=== PATIENT | female | born 2005 | race Caucasian/White ===

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

== ENCOUNTER 2024-06-10 11:40 | Emergency (ER) | payer OTHER ==
--- OUTSIDE RECORDS SUMMARY | 2024-06-10 11:43 | XMS REPORT | Continuity of Care Document ---
Author Name Unknown Address [address] [facility] [address] [place] [address] [facility] Address [address] [facility] [address] [place] [address] Care Team Providers Care Tank Bottom Assembler Name Role Phone Marla Gilbert Edward Primary Care Physician [phone] THIEN JACK Attending Clinician Unavailable Thien Jack DO Attending Clinician [phone] Doctor Unassigned, Yantis Attending Clinician U ANSLEY Shaw Attending Clinician Amada Redding Attending Clinician [phone] Stanford Montiel DO Attending Clinician [phone] Ansley Ruiz MD Attending Clinician + [phone] GÓMEZ CHU Attending Clinician Unavaila Gómez Novak Attending Clinician [phone] GEENA DRAPER Attending Clinician Unavailable Geena Draper MD Attending Clinician [phone] ANSLEY RUIZ Admitting Clinician Ansley Murguia MD Admitting Clinician + [phone] Payers Payer Name Policy Type Policy Number Effective Date Expirati on Date Source [facility] [id number] 2021 00:00:00 [employer] [place] [id number] 2018 00:00:00 2020 00:00:00 Problems Condition Name Condition Details Condition Category Status Onset Date Resolution Date Last Treatment Date Treating Clinician Comments Source Drug overdose, undetermin ed intent, initial encounter Drug overdose, undetermin ed intent, initial encounter Disease Active 08-07 00:00: 00 [facility] Irregular menstrual cycle Irregular menstrual cycle Disease Active 1 00:00: 00 [facility] Allergies, Adverse Reactions, Alerts Allergy Name Allergy Type Status Severity Reaction(s) Onset Date Inactive Date Treating Clinician Comments Source NO KNOWN ALLERGIE S Drug Class Active [facility] Social History Social Habit Start Date Stop Date Quantity Comments Source History of tobacco use Occasional tobacco smoker [facility] History SDOH Alcohol Std Drinks [facility] History SDOH Alcohol Binge [facility] History SDOH Alcohol Comment [place] [facility] Exposure to SARS-CoV-2 (event) 2021-11-26 00:00:00 2021-12-06 12:00:00 Not sure [facility] Alcohol intake 2021-08-07 00:00:00 2021-08-07 00:00:00 Ex-drinker (finding) [facility] Tobacco use and exposure 2020-03-06 00:00:00 2020-03-06 00:00:00 Smokeless tobacco non-user [facility] History SDOH Alcohol Frequency 2020-03-06 00:00:00 2020-03-06 00:00:00 1 [facility] Sex Assigned At 2005 00:00:00 2005 00:00:00 [facility] Smoking Status Start Date Stop Date Source Occasional tobacco smoker 2020-03-06 00:00:00 [facility] Medications Ordered Medication Name Filled Medication Name Start Date Stop Date Current Medication? Ordering Clinician Indication Dosage Frequency Signature (SIG) Comments Components Source amoxicillin -clavulanat e 875-125 mg per tablet 2021-02 00:00: 00 Yes [id number] 1{tbl} Take 1 tablet by mouth every 12 (twelve) hours. [facility] naproxen sodium 550 mg tablet 2021-02 00:00: 00 Yes [id number] 550mg Take 1 tablet by mouth in the morning and 1 tablet in the evening. Take with meals. [facility] methocarbam oL 500 mg tablet 2021-02 00:00: 00 12-12 04:59 :00 No [id number] 500mg Take 1 tablet by mouth in the morning and 1 tablet at noon and 1 tablet in the evening. Do all this for 5 days. [facility] lorazepam 2 mg/mL (ATIVAN) injection 2 mg 08-08 16:15: 00 08-08 16:20 :00 No 2mg 2 mg, Slow IV Push, ONCE, 1 dose, On Wed08/08/21 at 1130, Routine [facility] acetaminoph en (TYLENOL) tablet 650 mg 08-08 13:34: 48 Yes 650mg 650 mg, Oral, Q6HPRN, Starting on Wed08/08/21 at 0834, Until Discontinu ed, Routine, Pain (scale 1-3) [facility] lidocaine 4% (L-M-X 4) 4 % cream 08-07 21:42: 23 Yes Topical, PRN - SEE INSTRUCTIO NS, Starting on Wed08/07/21 at 1642, Until Discontinu ed, Routine, For use with IV insertion and blood draw procedures . [facility] potassium chloride 20 mEq/100 mL (KCL) 20 mEq/100 mL RTU IVPB 20 mEq 08-07 11:00: 00 08-07 12:54 :00 No 20meq 20 mEq, IV Piggyback, ONCE, 1 dose, On Wed08/07/21 at 0600, 100 mL [facility] pantoprazol e (PROTONIX) injection 40 mg 08-07 07:00: 00 08-07 21:41 :39 No 40mg 40 mg, Slow IV Push, Q24H, First dose on Wed08/07/21 at 0200, Until Discontinu ed [facility] ziprasidone (GEODON) injection 10 mg 08-07 02:15: 00 08-07 01:58 :00 No 10mg 10 mg, Intramuscu lar, ONCE, 1 dose, On Wed08/06/21 at 2115, ARLENE [facility] NaCl 0.9% (NS) bolus infusion 1,000 mL 08-07 02:15: 00 08-07 04:19 :00 No 1000mL at 999 mL/hr, 1,000 mL, IV Infusion, ONCE, 1 dose, On Wed08/06/21 at 2115, STAT [facility] ziprasidone (GEODON) injection 10 mg 08-07 02:00: 00 08-07 01:02 :00 No 10mg 10 mg, Intramuscu lar, ONCE, 1 dose, On Wed08/06/21 at 2100, ARLENE [facility] No known medications 08-06 19:55: 39 No [facility] norethindro ne-ethinyl estradiol (LOESTRIN 03/13, ,) 1-20 mg-mcg per tablet 113 00:00: 00 08-08 00:00 :00 No [id number] 1{tbl} Take 1 tablet by mouth daily. [facility] ARIPiprazol e 30 mg tablet 2019-02 216 00:00: 00 08-08 00:00 :00 No 30mg Take 30 mg by mouth daily. [facility] traZODone 50 mg tablet 2019-02 0-28 00:00: 00 08-08 00:00 :00 No 50mg Take 50 mg by mouth at bedtime. [facility] Vital Signs Vital Name Observation Time Observation Value Comments S merari Systolic blood pressure 2021-12-06 17:50:00 117 mm[Hg] [facility] Diastolic blood pressure 2021-12-06 17:50:00 68 mm[Hg] [facility] Heart rate 2021-12-06 17:50:00 92 /min [facility] Respiratory rate 2021-12-06 17:50:00 16 /min [facility] Oxygen saturation in Arterial blood by Pulse oximetry 2021-12-06 17:50:00 100 /min [facility] Body temperature 2021-12-06 17:01:00 36.67 Chasity [facility] Body height 2021-12-06 17:01:00 152.4 cm [facility] Body weight 2021-12-06 17:01:00 47.174 kg [facility] BMI 2021-12-06 17:01:00 20.31 kg/m2 [facility] Body mass index (BMI) [Percentile] Per age and sex 2021-12-06 17:01:00 38.34 % [facility] Systolic blood pressure 2021-08-08 13:00:00 107 mm[Hg] [facility] Diastolic blood pressure 2021-08-08 13:00:00 65 mm[Hg] [facility] Heart rate 2021-08-08 13:00:00 64 /min [facility] Body temperature 2021-08-08 13:00:00 36.89 Chasity [facility] Respiratory rate 2021-08-08 13:00:00 15 /min [facility] Oxygen saturation in Arterial blood by Pulse oximetry 2021-08-08 13:00:00 98 /min [facility] Body height 2021-08-07 13:10:00 154.9 cm [facility] Body weight 2021-08-07 13:10:00 40 kg [facility] BMI 2021-08-07 13:10:00 16.66 kg/m2 [facility] Body mass index (BMI) [Percentile] Per age and sex 2021-08-07 13:10:00 1.83 % [facility] Systolic blood pressure 2021-04-09 17:40:00 110 mm[Hg] [facility] Diastolic blood pressure 2021-04-09 17:40:00 62 mm[Hg] [facility] Heart rate 2021-04-09 17:40:00 136 /min [facility] Body temperature 2021-04-09 17:40:00 36.33 Chasity [facility] Respiratory rate 2021-04-09 17:40:00 18 /min [facility] Body weight 2021-04-09 17:40:00 48.535 kg [facility] Oxygen saturation in Arterial blood by Pulse oximetry 2021-04-09 17:40:00 99 /min [place] [facility] Procedures Procedure Date / Time Performed Performing Clinician Source CONSENT/REFUSAL FOR DIAGNOSIS AND TREATMENT 2021-12-06 16:54:00 Doctor Unassigned, Yantis [facility] EXTERNAL PROVIDER RECORDS 2021-08-15 05:01:00 Do ctor Unassigned, Yantis [facility] HB ECG ROUTINE & RHYTHM STRIP 2021-08-07 07:30:44 Anali Sinclair [facility] PROTHROMBIN TIME / INR 2021-08-07 07:11:00 Melquiades Sinclair [facility] ACTIVATED PARTIAL THRMPLAS MICHELLE 2021-08-07 07:11:00 Anali Sinclair [facility] MRSA / MSSA SCREEN BY PCR, ROLAN 2021-08-07 07:11:00 Anali Sinclair [facility] PHOSPHORUS 2021-08-07 07:11:00 Anali Sinclair [facility] MAGNESIUM 2021-08-07 07:11:00 [facility] BASIC METABOLIC PANEL (NA, K, CL, CO2, GLUCOSE, BUN, CREATININE, CA) 2021-08-07 07:11:00 Anali Sinclair [facility] HB ECG ROUTINE & RHYTHM STRIP 2021-08-07 03:52:36 Anali Sinclair [facility] XR CHEST 1 VW 2021-08-07 02:40:15 Amada Reeder [facility] ASSIGNMENT OF BENEFITS 2021-08-07 02:18:21 Docto r Unassigned, Yantis [facility] POCT TEST 2021-08-07 01:56:00 Amada Reeder [facility] COVID-19 (ID NOW RAPID TESTING) 2021-08-07 01:56:00 Amada Reeder [facility] LAB ONLY COVID INTERPRETATION 2021-08-07 01:56:00 Amada Reeder [facility] URINE DRUG (IMMUNOASSAY) - COMPREHENSIVE DRUG SCREEN 2021-08-07 01:54:00 Amada Reeder [facility] URINALYSIS 2021-08-07 01:54:00 Amada Reeder [facility] HB ECG ROUTINE & RHYTHM STRIP 2021-08-07 01:31:52 Amada Reeder [facility] ETHANOL 2021-08-07 01:07:00 Amada Reeder [facility] CBC WITH DIFF 2021-08-07 01:07:00 Amada [facility]eder [facility] K[facility] 2021-08-07 01:07:00 [facility] LIP[facility] 2021-08-07 01:07:00 Amada Reeder [facility] MAGNESIUM 2021-08-07 01:07:00 Amada Reeder [facility] TROPONIN I 2021-08-07 01:07:00 Amada Reeder [facility] COMP. METABOLIC PANEL (37826) 2021-08-07 01:07:00 Amada Reeder [facility] SALICYLATE 2021-08-07 01:07:00 Amada Reeder [facility] NOTICE OF PRIVACY PRACTICES 2021-04-09 17:39:01 Doctor Unassigned, Yantis [facility] CONSENT/REFUSAL FOR DIAGNOSIS AND TREATMENT 2021-04-09 17:36:13 Doctor Unassigned, Yantis [facility] Encounters Start Date/Time End Date/Time Encounter Type Admission Type Attending [facility] Care Facility Care Department Encounter ID Source 2023-09-13 10:14:06 2023-09-13 10:14:06 Outpatient [facility] [id number] Leroy F Benito 2023-09-06 16:20:46 2023-09-06 16:20:46 Outpatient [facility] [id number] Leroy F Benito 2023-08-31 15:46:54 2023-08-31 15:46:54 Outpatient [facility] [id number] Leroy F Benito 2021-12-06 12:03:00 2021-12-06 12:58:00 Emergency X THIEN JACK [facility] ERT [id number] [facility] 2021-12-06 12:03:00 2021-12-06 12:58:[address] [facility] [id number] 350.1.13.10 4.2.7.2.686 [id number] [facility] 2021-08-15 00:00:00 2021-08-15 00:00:00 Orders Only Doctor Unassigned, Yantis [facility] 1.2840.114 350.1.13.10 4.2.7.2.686 [id number] [facility] 2021-08-06 19:50:00 2021-08-08 17:51:00 Outpatient X CARITO ROE [facility] PED [id number] [facility] 2021-08-06 19:50:00 2021-08-08 17:51:00 Hospital Encounter Amada Reeder [facility] 1..114 350.1.13.10 4.2.7.2.686 [id number] [facility] 2021-04-09 11:44:00 2021-04-09 12:45:00 Emergency X GÓMEZ CHU [facility] ERT [id number] [facility] 2021-04-09 11:44:00 2021-04-09 12:45:[address]ómez Chu [facility] 1.2840.114 350.1.13.10 4.2.7.2.686 [id number] [facility] 2021-04-09 00:00:00 2021-04-09 00:00:00 Orders Only Doctor Unassigned, Yantis [facility] 1.2840.114 350.1.13.10 4.2.7.2.686 [id number] [facility] 2020-09-03 14:00:00 2020-09-03 14:00:00 Outpatient GEENA KITCHEN [facility] [id number] [facility] 2020-03-06 14:40:32 2020-03-06 15:31:16 Office Visit Geena Draper [facility] [id number] 350.1.13.10 4.2.7.2.686 [id number] 2020-03-06 14:30:00 2020-03-06 15:31:16 Outpatient Satya GEENA DRAPER [facility] [id number] [facility] 2019-03-06 00:00:00 2019-03-06 00:00:00 Orders Only Doctor Unassigned, Yantis [facility] [id number] 350.1.13.10 4.2.7.2.686 [id number] Results Test Description Test Time Test Comments Results Result Co mments Source [facility] [id number] 08:58:46* Test Item Value Reference Range Interpretation Comme [facility] MAGNESIUM (test code = 8516496705) 2.1 mg/dL 1.7-2.4 Lab Interpretation (test cod e = 16108-5) Normal [facility] [id number] 08:58:46* Test Item Value Reference Range Interpretation Comme nts PHOSPHORUS (test code = 5788180763) 3.6 mg/dL 2.5-5.0 Lab Interpretation (test cod e = 66560-4) Normal [facility]thrombin Time / [id number] 07:44:37* Test Item Value Reference Range Interpretation Comme nts PROTIME PATIENT (test code = 5964-2) See_Comment [Automated messa ge] The system which generated this result transmitted reference range: 10.1 - 12.6 Seconds. The reference range was not used to interpret this result as normal/abnormal. INR (test code = 6301-6) Normal INR <1.1; Warfarin Therapeutic range 2.0 to 3.0 or 2.5 to 3.5, depending upon the indications. Lab Interpretation (test code = 53845-0) Normal [facility]aPTT2022-06-16 07:44:37* Test Item Value Reference Range Interpretation Comme nts APTT Patient (test code = 3173-2) See_Comment [Automated messa ge] The system which generated this result transmitted reference range: 26 - 36 Seconds. The reference range was not used to interpret this result as normal/abnormal. Lab Interpretation (test code = 56749-8) Normal [facility]2022-06-16 01:59:04* Test Item Value Reference Range Interpretation Comme nts MAGNESIUM (test code = 7230780122) 2.2 mg/dL 1.7-2.4 Lab Interpretation (test cod e = 66870-6) Normal [facility]landPOCT [id number] 01:56:00* Test Item Value Reference Range Interpretation Comme nts POCT PREG (test code = 1605) Negative On board controls acceptable with C Line (test code = 3574) Present POCT PREG LOT # (test code = 3575) HCG [id number] POCT PREG TEST DATE ( test code = 3576) 11/21/2022 Lab Interpretation (test cod e = 06171-1) [facility]* Test Item Value Reference Range Interpretation Comme nts SALICYLATE (test code = 4103502092) <10 mg/L YOVANNY (test code = YOVANNY) Therapeutic Range: ? Analgesic and Antipyretic Use ? 20-100 mg/L ? ? Anti-Inflammatory Use ? 100-250 mg/L Toxic Range: ? Greater than 300 mg/L [facility]ET[facility]INOPHEN2022-06-16 01:49:50* Test Item Value Reference Range Interpretation Comme nts ACETAMINOP (test code = 0494498643) <10.0 10.0-30.0 L YOVANNY (test code = YOVANNY) Toxic: Greater brooke n 200 ug/mL @ 4 hour post ingestion or greater than 50 ug/mL @ 12 hour post ingestion Lab Interpretation (test code = 24483-1) Abnormal [facility]ANOL2022-06-16 01:42:10* Test Item Value Reference Range Interpretation Comme nts ALCOHOL (test code = 9105829764) <10 mg/dL YOVANNY (test code = YOVANNY) <10 Ayequsuo14-172 Toxic>100 Depression of TEST GRADER>400 Fatalities Reported [facility]land[facility]OPONIN [id number] 01:38:18* Test Item Value Reference Range Interpretation Comments TROPONIN I (test code = 0895490946) 0.001 ng/mL See_Comment [Automated message] The system which generated this result transmitted reference range: <=0.034. The reference range was not used to interpret this result as normal/abnormal. YOVANNY (test code = YOVANNY) Reference (Normal) Range (defined by the 99th percentile reference limit): <= 0.034 ng/mL Note: Cardiac troponin begins to rise 3-4 hours after the onset of ischemia. Repeat in 4-6 hours if the sample was drawn within 3-4 hours of the onset of the symptom and found normal. Diagnosis of myocardial injury is made with acute changes in cTn concentrations with at least one serial sample above the 99th percentile upper reference limit (URL), taken together with the patient's clinical presentation. Biotin has been reported to cause a negative bias, interpret results relative to patient's use of biotin. Lab Interpretation (test code = 51150-1) Normal [facility]IPASE2022-06-16 01:34:17* Test Item Value Reference Range Interpretation Comme nts LIPASE (test code = 3804802578) 98 U/L 0-220 Lab Interpretation (test cod e = 98838-6) Normal [facility]landCOMP. METABOLIC PANEL (12153)2021-08-07 01:26:59* Test Item Value Reference Range Interpretation Comme nts NA (test code = 4121236014) 141 mmol/L 135-145 K (test code = 4192435614) 3.9 mmol/L 3.5-5.0 CL (test code = 7910757226) 107 mmol/L 98-108 CO2 TOTAL (test code = 7478127992) 25 mmol/L 23-31 AGAP (test code = 6266845038) 2-16 BUN (test code = 4324392187) 14 mg/dL 7-23 GLUCOSE (test code = 9026268602) 102 mg/dL 70-110 CREATININE (test code = 3351447847) 0.77 mg/dL 0.50-1.04 TOTAL BILI (test code = 6951056043) 0.3 mg/dL 0.1-1.1 CALCIUM (test code = 5338889227) 9.6 mg/dL 8.6-10.6 T PROTEIN (test code = 5341462439) 6.8 g/dL 6.3-8.2 ALBUMIN (test code = 9077989717) 4.4 g/dL 3.5-5.0 ALK PHOS (test code = 1510948921) 74 U/L 34-122 ALTv (test code = 1742-6) 14 U/L 5-35 AST(SGOT) (test code = 7402106997) 22 U/L 13-40 YOVANNY (test code = YOVANNY) Association of Glomerular Filtration Rate (GFR) and Staging of Kidney Disease* + --+ --+ ------+| GFR (mL/min/1.73 m2) ?| With Kidney Damage ?| ?Without Kidney Damage+ --------+ --------+ +| ?>90 ?| ?Stage one ?| ? Normal ?+ ---+ ---+ -------+| ?60-89 ?| ?Stage two ?| ? Decreased GFR ? + --+ --+ ------+| ?30-59 ?| ?Stage three ?| ? Stage three ? + --+ --+ ------+| ?15-29 ?| ?Stage four ? | ? Stage four ?+ ---+ ---+ -------+| ?<15 (or dialysis) ? ?| ?Stage five ? | ? Stage five ?+ ---+ ---+ -------+ *Each stage assumes the associated GFR level has been in effect for at least three months. ?Stages 1 to 5, with or without kidney disease, indicate chronic kidney disease. Notes: Determination of stages one and two (with eGFR >59mL/min/1.73 m2) requires estimation of kidney damage for at least three months as defined by structural or functional abnormalities of the kidney, manifested by either:Pathological abnormalities or Markers of kidney damage (including abnormalities in the composition of the blood or urine or abnormalities in imaging tests). Lab Interpretation (test code = 75572-3) Normal [facility]landCREATINE [id number] 01:26:39* Test Item Value Reference Range Interpretation Comme nts CK (test code = 9114043758) 69 U/L 33-194 Lab Interpretation (test cod e = 89702-8) Normal [facility]land[facility] WITH [id number] 01:15:38* Test Item Value Reference Range Interpretation Comme nts WBC (test code = 6690-2) See_Comment [Automated uSharea ge] The system which generated this result transmitted reference range: 4.50 - 13.50 10*3/?L. The reference range was not used to interpret this result as normal/abnormal. RBC (test code = 789-8) See_Comment L [Automated messa ge] The system which generated this result transmitted reference range: 4.10 - 5.10 10*6/?L. The reference range was not used to interpret this result as normal/abnormal. HGB (test code = 718-7) 12.3 g/dL 12.0-16.0 HCT (test code = 4544-3) 36.9 % 36.0-45.0 MCV (test code = 787-2) 94.9 fL 78.0-95.0 MCH (test code = 785-6) 31.6 pg 26.0-32.0 MCHC (test code = 786-4) 33.3 g/dL 32.0-36.0 RDW-SD (test code = 02747-1) 42.5 fL 38.5-49.0 RDW-CV (test code = 788-0) 12.2 % 11.5-14.0 PLT (test code = 777-3) See_Comment [Automated messa ge] The system which generated this result transmitted reference range: 135 - 361 10*3/?L. The reference range was not used to interpret this result as normal/abnormal. MPV (test code = 10960-7) 9.4 fL 9.4-13.3 NRBC/100 WBC (test code = 1018059190) See_Comment [Automated me ssage] The system which generated this result transmitted reference range: 0.0 - 10.0 /100 WBCs. The reference range was not used to interpret this result as normal/abnormal. NRBC x10^3 (test code = 1948102840) <0.01 See_Comment [Automated messa ge] The system which generated this result transmitted reference range: 10*3/?L. The reference range was not used to interpret this result as normal/abnormal. GRAN MAT (NEUT) % (test code = 770-8) 59.4 % IMM GRAN % (test code = 6899078518) 0.30 % LYMPH % (test code = 736-9) 30.6 % MONO % (test code = 5905-5) 7.7 % EOS % (test code = 713-8) 1.5 % BASO % (test code = 706-2) 0.5 % GRAN MAT x10^3(ANC) (test code = 1030453395) 3.92 10*3/uL 1.50-10.30 IMM GRAN x10^3 (test code = 4250832337) <0.03 0.00-0.06 LYMPH x10^3 (test code = 731-0) 2.02 10*3/uL 0.70-7.40 MONO x10^3 (test code = 742-7) 0.51 10*3/uL 0.00-0.50 H EOS x10^3 (test code = 711-2) 0.10 10*3/uL 0.00-0.40 BASO x10^3 (test code = 704-7) 0.03 10*3/uL 0.00-0.10 Lab Interpretation (test code = 06682-2) Abnormal [facility]"
--- NOTE | 2024-06-10 11:53 | EDPHYS ---
Physician Documentation [facility] Name: Patrizia Pantoja Age: 19 yrs Sex: Female : 2005 Arrival Date: 06/10/2024 Time: 11:40 Bed 6 Private MD: ED Physician Christiano Barrientos HPI: 06/10 11:54 This 19 yrs old Female presents to ER via Ambulatory with complaints of SOCIAL ISSUE. sb4 11:54 patient is here requesting paperwork to "confirm her identity" she has no medical sb4 complaint. was sent by social security office. denies headache. 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 - Infectious Disease History:: Denies. - Social history:: Smoking status: Patient denies any tobacco usage or history of. ROS: 11:54 Constitutional: Negative for fever, chills, and weight loss, sb4 Exam: 11:54 Constitutional: This is a well developed, well nourished patient who is awake, alert, sb4 and in no acute distress. Head/Face: Normocephalic, atraumatic. Eyes: Extra-ocular motions intact. Periorbital areas with no swelling, redness, or edema. ENT: Mucous membranes moist. Respiratory: No increased work of breathing, no retractions or nasal flaring. Skin: Warm, dry with normal turgor. Normal color with no rashes, no lesions, and no evidence of cellulitis. Vital Signs: 11:53 BP 121 / 61; Pulse 61; Resp 16; Temp 98.6; Pulse Ox 96% ; Pain 0/10; ll1 11:53 Pain Scale: Adult ll1 MDM: 11:49 Medical Screening Exam initiated sb4 11:55 Data reviewed: vital signs, nurses notes, and as a result, I will discharge patient. sb4 Counseling: I had a detailed discussion with the patient and/or guardian regarding the historical points, exam findings, and any diagnostic results supporting the discharge/admit diagnosis, the need for outpatient follow up, for definitive care, to return to the emergency department if symptoms worsen or persist or if there are any questions or concerns that arise at home. Administered Medications: No medications were administered Disposition Summary: 06/10/24 11:52 Discharge Ordered Notes: Location: Home sb4 Problem: new sb4 Symptoms: are unchanged sb4 Condition: Stable sb4 Diagnosis - Encounter for screening, unspecified sb4 Followup: sb4 - With: Private Physician - When: As needed - Reason: Recheck today's complaints, Continuance of care, Re-evaluation by your physician Discharge Instructions: - Discharge Summary Sheet sb4 Forms: - Patient Portal Instructions sb4 - Leadership Thank You Letter sb4 Addendum: 06/11/2024 13:00 Co-signature as Attending Physician, Christiano Barrientos MD I agree with the assessment and c maradiaga plan of care. Signatures: Christiano Barrientos MD MD cha Lewis, Lynsay, RN RN ll1 Annabelle Milton, EVAC PAGlenC sb4
--- NOTE | 2024-06-10 11:53 | ER ---
Nurse's Notes [facility] Name: Patrizia Pantoja Age: 19 yrs Sex: Female : 2005 Arrival Date: 06/10/2024 Time: 11:40 Bed 6 Private MD: Diagnosis: Encounter for screening, unspecified Presentation: 06/10 11:53 Chief complaint: Patient states: Denies medical needs at this time. Coronavirus screen: ll1 Client denies travel out of the [place] in the last 14 days. At this time, the client does not indicate any symptoms associated with coronavirus-19. Ebola Screen: Patient denies travel to an Ebola-affected area in the 21 days before illness onset. Initial Sepsis Screen: Does the patient meet any 2 criteria? No. Patient's initial sepsis screen is negative. Does the patient have a suspected source of infection? No. Patient's initial sepsis screen is negative. Risk Assessment: Do you want to hurt yourself or someone else? Patient reports no desire to harm self or others. Onset of symptoms was June 10, 2024. 11:53 Method Of Arrival: Ambulatory [facility] 11:53 Acuity: SUSANNE 5 ll1 Triage Assessment: 12:02 Headache History: Denies prior headaches. General: Appears in no apparent distress. 1 Pain: Pain currently is 0 out of 10 on a pain scale. Also complains of no other associated symptoms. Pain: Denies pain. 12:03 Pain: Pain began suddenly. 1 COLOR CHECKER: 12:03 LMP N/A - control method, Not ll1 Historical: - Allergies: 11:53 No Known Allergies; ll1 - PMHx: 11:53 Anxiety; Depression; ODD; SUICIDE ATTEMPT; ll1 - Immunization history:: Adult Immunizations up to date. - Infectious Disease History:: Denies. - Social history:: Smoking status: Patient denies any tobacco usage or history of. Screenin:02 [facility] ED Fall Risk Assessment (Adult) History of falling in the last 3 months, ll1 including since admission No falls in past 3 months (0 pts) Confusion or Disorientation No (0 pts) Intoxicated or Sedated No (0 pts) Impaired Gait No (0 pts) Mobility Assist Device Used No (0 pt) Altered Elimination No (0 pt) Score/Fall Risk Level 0 - 2 = Low Risk Maintained a safe environment, Hourly rounding (assess needs \T\ fall precautionary measures) done. Abuse screen: Denies threats or abuse. Nutritional screening: No deficits noted. Tuberculosis screening: No symptoms or risk factors identified. Assessment: 12:01 General: Appears in no apparent distress. Behavior is calm, cooperative, appropriate ll1 for age. General: wanting verification of her name and date for Medicare purposes. . Pain: Denies pain. Neuro: No deficits noted. Vital Signs: 11:53 BP 121 / 61; Pulse 61; Resp 16; Temp 98.6; Pulse Ox 96% ; Pain 0/10; ll1 11:53 Pain Scale: Adult ll1 ED Course: 11:47 Patient arrived in ED. al6 11:48 Annabelle Milton PA-C [facility]. sb4 11:48 Christiano Barrientos MD is Attending Physician. sb4 11:50 Joseph Ross, RN is Primary Nurse. bp 11:52 Arm band placed on Patient placed in an exam room, on a stretcher. ll1 11:54 Triage completed. ll1 12:02 No provider procedures requiring assistance completed. Patient did not have IV access ll1 during this emergency room visit. 12:03 Patient has correct armband on for positive identification. Provided Education on: ER ll1 procedures and process. Administered Medications: No medications were administered Medication: 12:03 VIS not applicable for this client. ll1 Outcome: 11:52 Discharge ordered by . sb4 12:02 Discharged to home ambulatory, ll1 12:02 Condition: stable 12:02 Discharge instructions given to patient, Instructed on discharge instructions, follow up and referral plans. Demonstrated understanding of instructions, follow-up care, 12:03 Patient left the ED. ll1 Signatures: Joseph Ross, RN RN Kaitlynn Collazo RN RN ll1 Annabelle Milton PA-C PA-C 4 Martha Alves al6
[2024-06-10 12:35] VITALS: BP 121/61; TEMP 98.6; O2SAT 96
== END 2024-06-10 12:03 | disposition home or self-care (01) ==
LOC: ER 11:40
DX: Z02.89 Encounter for other administrative examinations (principal)
CPT/HCPCS: 99282

== ENCOUNTER 2024-07-06 21:53 | Emergency (ER) | payer MEDICAID, OTHER ==
--- OUTSIDE RECORDS SUMMARY | 2024-07-06 21:57 | XMS REPORT | Continuity of Care Document ---
Author Name Unknown Address [address] [facility] Jason. [address] [place] [address] [facility] Address [address] [facility]. [address] [place] [address] Care Team Providers Care Miller Apprentice Name Role Phone Gilbert Gutiérrez Cehyanne Primary Care Physician [phone] THIEN JACK Attending Clinician Unavailable Thien Jack DO Attending Clinician [phone] Doctor Unassigned, [place] Attending Clinician U ANSLEY Shaw Attending Clinician Amada Redding Attending Clinician [phone] Stanford Montiel DO Attending Clinician [phone] Ansley Ruiz MD Attending Clinician + [phone] GÓMEZ CHU Attending Clinician Unavaila Gómez Novak Attending Clinician [phone] GEENA DRAPER Attending Clinician Unavailable Geena Draper MD Attending Clinician [phone] ANSLEY RUIZ Admitting Clinician Ansley Murguia MD Admitting Clinician + [phone] Payers Payer Name Policy Type Policy Number Effective Date Expirati on Date Source [facility] [id number] 2021 00:00:00 [place] [id number] 2018 00:00:00 2020 00:00:00 Problems Condition Name Condition Details Condition Category Status Onset Date Resolution Date Last Treatment Date Treating Clinician Comments Source Drug overdose, undetermin ed intent, initial encounter Drug overdose, undetermin ed intent, initial encounter Disease Active 08-07 00:00: 00 [facility] Irregular menstrual cycle Irregular menstrual cycle Disease Active 1- 00:00: 00 [facility] Allergies, Adverse Reactions, Alerts Allergy Name Allergy Type Status Severity Reaction(s) Onset Date Inactive Date Treating Clinician Comments Source NO KNOWN ALLERGIE S Drug Class Active [facility] Social History Social Habit Start Date Stop Date Quantity Comments Source History of tobacco use Occasional tobacco smoker [facility] History SDOH Alcohol Std Drinks [facility] History SDOH Alcohol Binge [facility] History SDOH Alcohol Comment [place] [facility] Exposure to SARS-CoV-2 (event) 2021-11-26 00:00:00 2021-12-06 12:00:00 Not sure [facility] Alcohol intake 2021-08-07 00:00:00 2021-08-07 00:00:00 Ex-drinker (finding) [facility] Tobacco use and exposure 2020-03-06 00:00:00 2020-03-06 00:00:00 Smokeless tobacco non-user [facility] History SDOH Alcohol Frequency 2020-03-06 00:00:00 2020-03-06 00:00:00 1 [facility] Sex Assigned At 2004 00:00:00 2005 00:00:00 [facility] Smoking Status Start Date Stop Date Source Occasional tobacco smoker 2020-03-06 00:00:00 [facility] Medications Ordered Medication Name Filled Medication Name Start Date Stop Date Current Medication? Ordering Clinician Indication Dosage Frequency Signature (SIG) Comments Components Source amoxicillin -clavulanat e 875-125 mg per tablet 2021-02 00:00: 00 Yes [id number] 1{tbl} Take 1 tablet by mouth every 12 (twelve) hours. [facility] naproxen sodium 550 mg tablet 2021-02 00:00: 00 Yes [id number] 550mg Take 1 tablet by mouth in the morning and 1 tablet in the evening. Take with meals. [facility] methocarbam oL 500 mg tablet 2021-02 015 00:00: 00 12-12 04:59 :00 No [id number] 500mg Take 1 tablet by mouth in the morning and 1 tablet at noon and 1 tablet in the evening. Do all this for 5 days. [facility] lorazepam 2 mg/mL (ATIVAN) injection 2 mg 08-08 16:15: 00 08-08 16:20 :00 No 2mg 2 mg, Slow IV Push, ONCE, 1 dose, On Wed08/08/21 at 1130, Routine [facility] acetaminoph en (TYLENOL) tablet 650 mg 08-08 13:34: 48 Yes 650mg 650 mg, Oral, Q6HPRN, Starting on Wed08/08/21 at 0834, Until Discontinu ed, Routine, Pain (scale 1-3) [facility] lidocaine 4% (L-M-X 4) 4 % cream 08-07 21:42: 23 Yes Topical, PRN - SEE INSTRUCTIO NS, Starting on Wed08/07/21 at 1642, Until Discontinu ed, Routine, For use with IV insertion and blood draw procedures . [facility] potassium chloride 20 mEq/100 mL (KCL) 20 mEq/100 mL RTU IVPB 20 mEq 08-07 11:00: 00 08-07 12:54 :00 No 20meq 20 mEq, IV Piggyback, ONCE, 1 dose, On Wed08/07/21 at 0600, 100 mL [facility] pantoprazol e (PROTONIX) injection 40 mg 08-07 07:00: 00 08-07 21:41 :39 No 40mg 40 mg, Slow IV Push, Q24H, First dose on Wed08/07/21 at 0200, Until Discontinu ed [facility] ziprasidone (GEODON) injection 10 mg 08-07 02:15: 00 08-07 01:58 :00 No 10mg 10 mg, Intramuscu lar, ONCE, 1 dose, On Wed08/06/21 at 2115, ARLENE [facility] NaCl 0.9% (NS) bolus infusion 1,000 mL 08-07 02:15: 00 08-07 04:19 :00 No 1000mL at 999 mL/hr, 1,000 mL, IV Infusion, ONCE, 1 dose, On Wed08/06/21 at 2115, STAT [facility] ziprasidone (GEODON) injection 10 mg 08-07 02:00: 00 08-07 01:02 :00 No 10mg 10 mg, Intramuscu lar, ONCE, 1 dose, On Wed08/06/21 at 2100, ARLENE [facility] No known medications 08-06 19:55: 39 No [facility] norethindro ne-ethinyl estradiol (LOESTRIN 03/13, ,) 1-20 mg-mcg per tablet 113 00:00: 00 08-08 00:00 :00 No [id number] 1{tbl} Take 1 tablet by mouth daily. [facility] ARIPiprazol e 30 mg tablet 2019-02 2-16 00:00: 00 08-08 00:00 :00 No 30mg Take 30 mg by mouth daily. [facility] traZODone 50 mg tablet 2019-02 0-28 00:00: 00 08-08 00:00 :00 No 50mg Take 50 mg by mouth at bedtime. [facility] Vital Signs Vital Name Observation Time Observation Value Comments S merari Systolic blood pressure 2021-12-06 17:50:00 117 mm[Hg] [facility] Diastolic blood pressure 2021-12-06 17:50:00 68 mm[Hg] [facility] Heart rate 2021-12-06 17:50:00 92 /min [facility] Respiratory rate 2021-12-06 17:50:00 16 /min [facility] Oxygen saturation in Arterial blood by Pulse oximetry 2021-12-06 17:50:00 100 /min [facility] Body temperature 2021-12-06 17:01:00 36.67 Chasity [facility] Body height 2021-12-06 17:01:00 152.4 cm [facility] Body weight 2021-12-06 17:01:00 47.174 kg [facility] BMI 2021-12-06 17:01:00 20.31 kg/m2 [facility] Body mass index (BMI) [Percentile] Per age and sex 2021-12-06 17:01:00 38.34 % [facility] Systolic blood pressure 2021-08-08 13:00:00 107 mm[Hg] [facility] Diastolic blood pressure 2021-08-08 13:00:00 65 mm[Hg] [facility] Heart rate 2021-08-08 13:00:00 64 /min [facility] Body temperature 2021-08-08 13:00:00 36.89 Chasity [facility] Respiratory rate 2021-08-08 13:00:00 15 /min [facility] Oxygen saturation in Arterial blood by Pulse oximetry 2021-08-08 13:00:00 98 /min [facility] Body height 2021-08-07 13:10:00 154.9 cm [facility] Body weight 2021-08-07 13:10:00 40 kg [facility] BMI 2021-08-07 13:10:00 16.66 kg/m2 [facility] Body mass index (BMI) [Percentile] Per age and sex 2021-08-07 13:10:00 1.83 % [facility] Systolic blood pressure 2021-04-09 17:40:00 110 mm[Hg] [facility] Diastolic blood pressure 2021-04-09 17:40:00 62 mm[Hg] [facility] Heart rate 2021-04-09 17:40:00 136 /min [facility] Body temperature 2021-04-09 17:40:00 36.33 Chasity [facility] Respiratory rate 2021-04-09 17:40:00 18 /min [facility] Body weight 2021-04-09 17:40:00 48.535 kg [facility] Oxygen saturation in Arterial blood by Pulse oximetry 2021-04-09 17:40:00 99 /min [place] [facility] Procedures Procedure Date / Time Performed Performing Clinician Source CONSENT/REFUSAL FOR DIAGNOSIS AND TREATMENT 2021-12-06 16:54:00 Doctor Unassigned, [place] [facility] EXTERNAL PROVIDER RECORDS 2021-08-15 05:01:00 Do ctor Unassigned, [place] [facility] HB ECG ROUTINE & RHYTHM STRIP 2021-08-07 07:30:44 Anali Sinclair [facility] PROTHROMBIN TIME / INR 2021-08-07 07:11:00 Melquiades Sinclair [facility] ACTIVATED PARTIAL THRMPLAS MICHELLE 2021-08-07 07:11:00 Anali Sinclair [facility] MRSA / MSSA SCREEN BY PCR, ROLAN 2021-08-07 07:11:00 Anali Sinclair [facility] PHOSPHORUS 2021-08-07 07:11:00 Anali Sinclair [facility] MAGNESIUM 2021-08-07 07:11:00 Anali Sinclair [facility] BASIC METABOLIC PANEL (NA, K, CL, CO2, GLUCOSE, BUN, CREATININE, CA) 2021-08-07 07:11:00 Anali Sinclair [facility] HB ECG ROUTINE & RHYTHM STRIP 2021-08-07 03:52:36 Anali Sinclair [facility] XR CHEST 1 VW 2021-08-07 02:40:15 Amada Reeder [facility] ASSIGNMENT OF BENEFITS 2021-08-07 02:18:21 Docto r Unassigned, [place] [facility] POCT TEST 2021-08-07 01:56:00 Amada Reeder [facility] COVID-19 (ID NOW RAPID TESTING) 2021-08-07 01:56:00 Amada Reeder [facility] LAB ONLY COVID INTERPRETATION 2021-08-07 01:56:00 Amada Reeder [facility] URINE DRUG (IMMUNOASSAY) - COMPREHENSIVE DRUG SCREEN 2021-08-07 01:54:00 Amada Reeder [facility] URINALYSIS 2021-08-07 01:54:00 Amada Reeder [facility] HB ECG ROUTINE & RHYTHM STRIP 2021-08-07 01:31:52 Amada Reeder [facility] ETHANOL 2021-08-07 01:07:00 Amada Reeder [facility] CBC WITH DIFF 2021-08-07 01:07:00 Amada Reeder [facility] CREATINE KINASE 2021-08-07 01:07:00 Amada Reeder [facility] LIPASE 2021-08-07 01:07:00 Amada Reeder [facility] MAGNESIUM 2021-08-07 01:07:00 Amada Reeder [facility] TROPONIN I 2021-08-07 01:07:00 Amada Reeder [facility] COMP. METABOLIC PANEL (95133) 2021-08-07 01:07:00 Amada Reeder [facility] SALICYLATE 2021-08-07 01:07:00 Amada Reeder [facility] NOTICE OF PRIVACY PRACTICES 2021-04-09 17:39:01 Doctor Unassigned, [place] [facility] CONSENT/REFUSAL FOR DIAGNOSIS AND TREATMENT 2021-04-09 17:36:13 Doctor Unassigned, [place] [facility] Encounters Start Date/Time End Date/Time Encounter Type Admission Type Attending [facility] Facility Care Department Encounter ID Source 2023-09-13 10:14:06 2023-09-13 10:14:06 Outpatient [facility] [id number] Leroy F Benito 2023-09-06 16:20:46 2023-09-06 16:20:46 Outpatient [facility] [id number] Leroy F Benito 2023-08-31 15:46:54 2023-08-31 15:46:54 Outpatient [facility] [id number] Leroy F Benito 2021-12-06 12:03:00 2021-12-06 12:58:00 Emergency X THIEN JACK [facility] ERT [id number] [facility] 2021-12-06 12:03:00 2021-12-06 12:58:00 Emergency Thien Jack [facility] 1.2840.114 350.1.13.10 4.2.7.2.686 [id number] [facility] 2021-08-15 00:00:00 2021-08-15 00:00:00 Orders Only Doctor Unassigned, [place] [facility] 1.2840.114 350.1.13.10 4.2.7.2.686 [id number] [facility] 2021-08-06 19:50:00 2021-08-08 17:51:00 Outpatient X CARITO ROE [facility] PED [id number] [facility] 2021-08-06 19:50:00 2021-08-08 17:51:00 Hospital Encounter Amada Reeder, [place] [facility] 1..114 350.1.13.10 4.2.7.2.686 [id number] [facility] 2021-04-09 11:44:00 2021-04-09 12:45:00 Emergency X GÓMEZ CHU [facility] ERT [id number] [facility] 2021-04-09 11:44:00 2021-04-09 12:45:00 Emergency Gómez Chu [facility] 1.0.114 350.1.13.10 4.2.7.2.686 [id number] [facility] 2021-04-09 00:00:00 2021-04-09 00:00:00 Orders Only Doctor Unassigned, [place] [facility] 1.2840.114 350.1.13.10 4.2.7.2.686 [id number] [facility] 2020-09-03 14:00:00 2020-09-03 14:00:00 Outpatient R GEENA DRAPER [facility] [id number] [facility] 2020-03-06 14:40:32 2020-03-06 15:31:16 Office Visit Matthieuazael Geena Clark [facility] [id number] 350.1.13.10 4.2.7.2.686 [id number] 2020-03-06 14:30:00 2020-03-06 15:31:16 Outpatient R GEENA DRAPER [facility] [id number] [facility] 2019-03-06 00:00:00 2019-03-06 00:00:00 Orders Only Doctor Unassigned, [place] [facility] [id number] 350.1.13.10 4.2.7.2.686 [id number] Results Test Description Test Time Test Comments Results Result Co mments Source [facility] [id number] 08:58:46* Test Item Value Reference Range Interpretation Comme [facility] MAGNESIUM (test code = 2320174362) 2.1 mg/dL 1.7-2.4 Lab Interpretation (test cod e = 84607-2) Normal [facility] [id number] 08:58:46* Test Item Value Reference Range Interpretation Comme nts PHOSPHORUS (test code = 7895819187) 3.6 mg/dL 2.5-5.0 Lab Interpretation (test cod e = 86613-8) Normal [facility] Time / [id number] 07:44:37* Test Item Value Reference Range Interpretation Comme nts PROTIME PATIENT (test code = 5964-2) See_Comment [Automated Pheedoa ge] The system which generated this result transmitted reference range: 10.1 - 12.6 Seconds. The reference range was not used to interpret this result as normal/abnormal. INR (test code = 6301-6) Normal INR <1.1; Warfarin Therapeutic range 2.0 to 3.0 or 2.5 to 3.5, depending upon the indications. Lab Interpretation (test code = 62301-7) Normal [facility]2022-[facility]-16 07:44:37* Test Item Value Reference Range Interpretation Comme nts APTT Patient (test code = 3173-2) See_Comment [Automated messa ge] The system which generated this result transmitted reference range: 26 - 36 Seconds. The reference range was not used to interpret this result as normal/abnormal. Lab Interpretation (test code = 03752-7) Normal [facility]2022-06-16 01:59:04* Test Item Value Reference Range Interpretation Comme nts MAGNESIUM (test code = 9469451610) 2.2 mg/dL 1.7-2.4 Lab Interpretation (test cod e = 23550-2) Normal [facility] [id number] 01:56:00* Test Item Value Reference Range Interpretation Comme nts POCT PREG (test code = 1605) Negative On board controls acceptable with C Line (test code = 3574) Present POCT PREG LOT # (test code = 3575) HCG [id number] POCT PREG TEST DATE ( test code = 3576) 11/21/2022 Lab Interpretation (test cod e = 87556-2) [facility]* Test Item Value Reference Range Interpretation Comme nts SALICYLATE (test code = 6520727875) <10 mg/L YOVANNY (test code = YOVANNY) Therapeutic Range: ? Analgesic and Antipyretic Use ? 20-100 mg/L ? ? Anti-Inflammatory Use ? 100-250 mg/L Toxic Range: ? Greater than 300 mg/L [facility]EN2022-06-16 01:49:50* Test Item Value Reference Range Interpretation Comme nts ACETAMINOP (test code = 6908224843) <10.0 10.0-30.0 L YOVANNY (test code = YOVANNY) Toxic: Greater brooke n 200 ug/mL @ 4 hour post ingestion or greater than 50 ug/mL @ 12 hour post ingestion Lab Interpretation (test code = 48726-5) Abnormal [facility]2022-[facility]-16 01:42:10* Test Item Value Reference Range Interpretation Comme nts ALCOHOL (test code = 2742391893) <10 mg/dL YOVANNY (test code = YOVANNY) <10 Onnfuote27-991 Toxic>100 Depression of [employer]PORATE [employer] ASSURANCE MANAGER>400 Fatalities Reported [facility] [id number] 01:38:18* Test Item Value Reference Range Interpretation Comments TROPONIN I (test code = 9392038756) 0.001 ng/mL See_Comment [Automated message] The system [...] of biotin. Lab Interpretation (test code = 23621-5) Normal [facility]2022-[facility]-16 01:34:17* Test Item Value Reference Range Interpretation Comme nts LIPASE (test code = 2248120788) 98 U/L 0-220 Lab Interpretation (test cod e = 84839-1) Normal [facility]. METABOLIC PANEL (12526)2021-08-07 01:26:59* Test Item Value Reference Range Interpretation Comme nts NA (test code = 6596420582) 141 mmol/L 135-145 K (test code = 4429439281) 3.9 mmol/L 3.5-5.0 CL (test code = 9438408474) 107 mmol/L 98-108 CO2 TOTAL (test code = 0841664491) 25 mmol/L 23-31 AGAP (test code = 8784695308) 2-16 BUN (test code = 2001092028) 14 mg/dL 7-23 GLUCOSE (test code = 8704443822) 102 mg/dL 70-110 CREATININE (test code = 6868264135) 0.77 mg/dL 0.50-1.04 TOTAL BILI (test code = 1164341593) 0.3 mg/dL 0.1-1.1 CALCIUM (test code = 8559415023) 9.6 mg/dL 8.6-10.6 T PROTEIN (test code = 7637195320) 6.8 g/dL 6.3-8.2 ALBUMIN (test code = 9124488641) 4.4 g/dL 3.5-5.0 ALK PHOS (test code = 6780340937) 74 U/L 34-122 ALTv (test code = 1742-6) 14 U/L 5-35 AST(SGOT) (test code = 8828165512) 22 U/L 13-40 YOVANNY (test code = [...] imaging tests). Lab Interpretation (test code = 05500-4) Normal [facility] [id number] 01:26:39* Test Item Value Reference Range Interpretation Comme nts CK (test code = 5314909731) 69 U/L 33-194 Lab Interpretation (test cod e = 41839-3) Normal [facility] WITH [id number] 01:15:38* Test Item Value Reference Range Interpretation Comme nts WBC (test code = 6690-2) See_Comment [Automated messa ge] The system which [...] 33.3 g/dL 32.0-36.0 RDW-SD (test code = 73812-5) 42.5 fL 38.5-49.0 RDW-CV (test code = 788-0) 12.2 % 11.5-14.0 PLT (test code = 777-3) See_Comment [Automated messa ge] The system which generated this result transmitted reference range: 135 - 361 10*3/?L. The reference range was not used to interpret this result as normal/abnormal. MPV (test code = 08764-6) 9.4 fL 9.4-13.3 NRBC/100 WBC (test code = 4882126802) See_Comment [Automated [employer] ssage] The system which generated this result transmitted reference range: 0.0 - 10.0 /100 WBCs. The reference range was not used to interpret this result as normal/abnormal. NRBC x10^3 (test code = 8059764581) <0.01 See_Comment [Automated messa ge] The system which generated this result transmitted reference range: 10*3/?L. The reference range was not used to interpret this result as normal/abnormal. GRAN MAT (NEUT) % (test code = 770-8) 59.4 % IMM GRAN % (test code = 7502339237) 0.30 % LYMPH % (test code = 736-9) 30.6 % MONO % (test code = 5905-5) 7.7 % EOS % (test code = 713-8) 1.5 % BASO % (test code = 706-2) 0.5 % GRAN MAT x10^3(ANC) (test code = 4033410696) 3.92 10*3/uL 1.50-10.30 IMM GRAN x10^3 (test code = 1865825699) <0.03 0.00-0.06 LYMPH x10^3 (test code = 731-0) 2.02 10*3/uL 0.70-7.40 MONO x10^3 (test code = 742-7) 0.51 10*3/uL 0.00-0.50 H EOS x10^3 (test code = 711-2) 0.10 10*3/uL 0.00-0.40 BASO x10^3 (test code = 704-7) 0.03 10*3/uL 0.00-0.10 Lab Interpretation (test code = 56449-0) Abnormal [facility]"
[2024-07-07] MEDS ORDERED: KETOROLAC 30 MG/ML INJ ONE (00:10)
[2024-07-07] MEDS ORDERED: NA CHLORIDE 0.9% 1,000 ML ONE (00:10)
[2024-07-07 00:38] LABS: Absolute Eosinophils 0.1 K/uL (0-0.5); Absolute Lymphocytes (CBC) 1.2 K/uL (0.7-4.9); Absolute Monocytes 0.4 K/uL (0.1-1.3); Absolute Neutrophil 4.7 K/uL (1.8-8.0); Basophils % 0.5 % (0-1.3); Eosinophils % 1.7 % (0-4.4); Hematocrit 40.4 % (36.0-45.0); Hemoglobin 13.9 g/dL (12.0-15.0); Lymphocytes % 18.4 % (15.3-44.8); MCH 32.3 pg (27.0-35.0); MCHC 34.5 g/dL (32.0-36.0); MCV 93.6 fL (80-100); MPV 7.4 fL (7.6-11.3); Monocytes % 6.5 % (3.3-12.3); Neutrophils % 72.9 % (41.7-73.7); Nucleated Red Blood Cells % 0.2 % (0-0); Platelets 217 thou/uL (152-406); RBC Red Blood Cell Count 4.31 M/uL (3.86-4.86); Red Cell Distribution Width 12.9 % (12.1-15.2)
[2024-07-07 00:42] LABS: PT Prothrombin Time 11.2 SECONDS (10-13.0); PTT, Activated Partial Thromb 28.5 SECONDS (27.2-37.4); Protime INR 0.98
[2024-07-07 00:48] LABS: Urine Bacteria 20-50 /HPF (<20); Urine Bilirubin NEGATIVE (Negative); Urine Blood Negative (Negative); Urine Clarity Turbid (Clear); Urine Color Yellow (Yellow); Urine Culture Reflex Order NOT NEEDED; Urine Glucose NEGATIVE (Negative); Urine Ketones NEGATIVE (Negative); Urine Microscopic Reflex YN ORDER UMIC; Urine Mucus 2+ /HPF (None Seen); Urine Nitrite 2+ (Negative); Urine Protein TRACE (Negative); Urine RBC <5 /HPF (None Seen); Urine Urobilinogen Normal (Normal); Urine pH 5.5 (5.0-7.0)
[2024-07-07] MEDS ORDERED: CEFTRIAXONE 1000 MG/VIAL ONE (01:12)
[2024-07-07] MEDS ORDERED: NA CHLORIDE 0.9% 50 ML ONE (01:12)
[2024-07-07 01:36] LABS: Albumin 3.5 g/dL (3.4-5.0); Albumin/Globulin Ratio 1.1 (1.1-1.8); Anion Gap 7.4 mEq/L (5.0-15.0); Bilirubin Total 0.5 mg/dL (0.2-1.0); Globulin 3.1 g/dL (2.3-3.5); Potassium 3.4 mEq/L (3.5-5.1); Protein, Total 6.6 g/dL (6.4-8.2)
--- NOTE | 2024-07-07 01:56 | EDPHYS ---
Physician Documentation [facility] Name: Patrizia Pantoja Age: 19 yrs Sex: Female : 2005 Arrival Date: 07/06/2024 Time: 21:53 Bed 7 Private MD: ED Physician Carie Staton HPI: 07/06 22:09 This 19 yrs old Female presents to ER via Ambulatory with complaints of Urinary sb4 Problem, Back Pain. 22:09 bilateral "kidney pain" x 3 days. states it feels similar to when she has had prior sb4 UTIs. reports nausea, no vomiting no fever or chills. slight burning with urination, no reported hematuria. 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 - Infectious Disease History:: Denies. - Social history:: Smoking status: Patient reports the use of cigarette tobacco products, smokes one pack cigarettes per day. Patient uses street drugs, marijuana, Methamphetamine (Meth). ROS: 22:09 Constitutional: Negative for fever, chills, and weight loss, sb4 22:09 Back: Positive for flank pain, 22:09 : Positive for urinary symptoms, 22:09 All other systems are negative, Exam: 22:09 Head/Face: Normocephalic, atraumatic. Eyes: Extra-ocular motions intact. Periorbital sb4 areas with no swelling, redness, or edema. ENT: Mucous membranes moist. Respiratory: No increased work of breathing, no retractions or nasal flaring. Abdomen/GI: Soft, non-tender, no distension. Skin: Warm, dry with normal turgor. Normal color with no rashes, no lesions, and no evidence of cellulitis. 22:09 Constitutional: The patient appears alert, awake, uncomfortable, 22:09 Cardiovascular: Rate: tachycardic, Rhythm: regular, 22:11 Back: CVA tenderness, is noted bilaterally, sb4 Vital Signs: 22:07 BP 108 / 64; Pulse 117; Resp 18; Temp 98.7(O); Pulse Ox 100% on R/A; Weight 45.36 kg; cm10 Height 5 ft. 0 in. ; Pain 8/; 07/07 00:15 BP 98 / 56; Pulse 65; Resp 16; Pulse Ox 100% on R/A; al5 00:30 BP 112 / 69; Pulse 59; Resp 14; Pulse Ox 100% ; al5 01:00 BP 103 / 65; Pulse 68; Resp 15; Pulse Ox 99% ; al5 01:30 BP 98 / 61; Pulse 66; Resp 14; Pulse Ox 99% ; al5 02:00 BP 112 / 70; Pulse 65; Resp 14; Pulse Ox 100% ; al5 07/06 22:07 Body Mass Index 19.53 (45.36 kg, 152.4 cm) cm10 07/06 22:07 Pain Scale: Adult cm10 MDM: 07/06 21:58 Medical Screening Exam initiated 07/07 01:53 Differential diagnosis: UTI, electrolyte abnormality. Data reviewed: vital signs, [facility] nurses notes, lab test result(s), EKG, and as a result, I will discharge patient. Counseling: I had a detailed discussion with the patient and/or guardian regarding the historical points, exam findings, and any diagnostic results supporting the discharge/admit diagnosis, lab results, the need for outpatient follow up, for definitive care, to return to the emergency department if symptoms worsen or persist or if there are any questions or concerns that arise at home. 07/06 22:09 Order name: Blood Culture Adult (2) [facility] 07/06 22:09 Order name: CBC with Diff; Complete Time: 00:44 [facility] 07/06 22:09 Order name: CMP; Complete Time: 01:36 [facility] 07/06 22:09 Order name: Lactate w/ 2H reflex if indic.; Complete Time: 00:55 [facility] 07/06 22:09 Order name: Protime (+inr); Complete Time: 00:44 [facility] 07/06 22:09 Order name: Ptt, Activated; Complete Time: 00:44 [facility] 07/06 22:09 Order name: UA Rfx Usman Cult if indicated; Complete Time: 00:51 [facility] 07/06 22:09 Order name: Test, Urine; Complete Time: 00:45 [facility] 07/06 22:09 Order name: Cardiac monitoring; Complete Time: 00:34 [facility] 07/06 22:09 Order name: EKG - Nurse/Tech; Complete Time: 00:34 sb4 07/06 22:09 Order name: IV Saline Lock - Large Bore; Complete Time: 00:14 sb4 07/06 22:09 Order name: Labs collected and sent; Complete Time: 00:14 sb4 07/06 22:09 Order name: O2 Per Protocol; Complete Time: 00:14 sb4 07/06 22:09 Order name: O2 Sat Monitoring; Complete Time: 00: sb4 07/06 22:09 Order name: Vital Signs; Complete Time: 23:55 sb4 07/07 00:49 Order name: Labs - recollect needed: green top; Complete Time: 01:10 kmf EC:31 Rate is 73 beats/min. Rhythm is regular, Normal Sinus Rhythm. Right axis deviation sb4 noted. ID interval is normal at 160 msec. QRS interval is normal at 80 msec. QT interval is normal at 384 msec. No Q waves. T waves are Normal. No ST changes noted. Clinical impression: No evidence of ischemia. Interpreted by me. Reviewed by me. Administered Medications: 00:14 Drug: NS 0.9% IV 1000 ml IV at 1000 ml once; to be given as a bolus over 60 minutes ha1 Route: IV; Rate: 1000 ml; Site: right antecubital; 02:29 Follow up: Response: No adverse reaction; IV Status: Completed infusion; IV Intake: al5 1000ml 01:10 Drug: Ketorolac IVP 15 mg IVP once Route: IVP; Site: right antecubital; al5 02:30 Follow up: Response: No adverse reaction; Pain is decreased al5 01:15 Drug: Rocephin IV 1 grams IV at calculated rate once; Given slow IV push per pharmacy al5 instructions Route: IV; Rate: calculated rate; Site: right antecubital; 02:29 Follow up: IV Status: Completed infusion; IV Intake: 50ml al5 Disposition: 06:53 Co-signature as Attending Physician, Carie Staton MD I agree with the assessment and gb1 plan of care. I reviewed the patient's care provided by the Advanced Practice Provider and agree with the diagnosis and treatment plan. Disposition Summary: 07/07/24 01:55 Discharge Ordered Notes: Location: Home sb4 Problem: new sb4 Symptoms: have improved sb4 Condition: Stable sb4 Diagnosis - UTI/ Urinary tract infection, site not specified sb4 Followup: sb4 - With: Emergency Department - When: As needed - Reason: Fever > 102 F, Worsening of condition Discharge Instructions: - Discharge Summary Sheet sb4 - Urinary Tract Infection, Adult, [id number] sb4 Forms: - Antibiotic Education sb4 - Patient Portal Instructions sb4 - Leadership Thank You Letter sb4 Prescriptions: - Bactrim DS 800-160 mg Oral tablet - take 1 tablet ORAL route every 12 hours for 7 days; 14 tablet; Refills: 0, sb4 Product Selection Permitted Signatures: Dispatcher [employer] EDMS Ileana Galicia, RN RN ha1 Annabelle Milton PA-C PA-C sb4 Kristina Rosario RN RN cm10 Carie Staton MD MD gb1 Anabel Rosales [facility] Estela Lam RN RN al5 Corrections: (The following items were deleted from the chart) 07/06 22:10 22:10 BLOOD CULTURE*+BA.LAB.BRZ ordered. EDMS EDMS 22:10 22:10 CBC+H.LAB.BRZ ordered. EDMS EDMS 22:10 22:10 COMPREHENSIVE METABOLIC PANEL+C.LAB.BRZ ordered. EDMS EDMS 22:10 22:10 LACTATE+C.LAB.BRZ ordered. EDMS EDMS 22:10 22:10 PROTIME (+INR)+COAG.LAB.BRZ ordered. EDMS EDMS 22:10 22:10 PTT, ACTIVATED+COAG.LAB.BRZ ordered. EDMS EDMS 22:10 22:10 UA Rfx Usman Cult if indicated+U.LAB.BRZ ordered. EDMS EDMS 22:10 22:10 Test, Urine+UC.LAB.BRZ ordered. EDMS EDMS 22:11 22:09 Head/Face: Normocephalic, atraumatic. Eyes: Extra-ocular motions intact. sb4 Periorbital areas with no swelling, redness, or edema. ENT: Mucous membranes moist. Respiratory: No increased work of breathing, no retractions or nasal flaring. Abdomen/GI: Soft, non-tender, no distension. Skin: Warm, dry with normal turgor. Normal color with no rashes, no lesions, and no evidence of cellulitis. sb4 23:55 22:09 Accucheck ordered. sb4 al5 07/07 02:02 01:46 Abdomen Pelvis W Con+CT.RAD.BRZ ordered. EDMS EDMS
--- NOTE | 2024-07-07 01:56 | ER ---
Nurse's Notes [facility] [place] Name: Patrizia Pantoja Age: 19 yrs Sex: Female : 2005 Arrival Date: 07/06/2024 Time: 21:53 Bed 7 Private MD: Diagnosis: UTI/ Urinary tract infection, site not specified Presentation: 07/06 22:07 Chief complaint: Patient states: Bilateral flank pain onset 3 days ago. Pt also reports cm10 some burning with urination. Pt reports using meth and marijuana today. Coronavirus screen: Client denies travel out of the [place] in the last 14 days. Ebola Screen: Patient denies travel to an Ebola-affected area in the 21 days before illness onset. Initial Sepsis Screen: Does the patient meet any 2 criteria? HR > 90 bpm. Does the patient have a suspected source of infection? No. Patient's initial sepsis screen is negative. Risk Assessment: Do you want to hurt yourself or someone else? Patient reports no desire to harm self or others. Onset of symptoms was July 06, 2024. 22:07 Method Of Arrival: Ambulatory cm10 22:07 Acuity: SUSANNE 3 cm10 Triage Assessment: 22:09 General: Appears in no apparent distress. uncomfortable, Behavior is calm, cooperative. cm10 Neuro: No deficits noted. Level of Consciousness is awake, alert, obeys commands, Oriented to person, place, time, situation, Appropriate for age. Respiratory: No deficits noted. Airway is patent Respiratory effort is even, unlabored, Respiratory pattern is regular, symmetrical. 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 - Infectious Disease History:: Denies. - Social history:: Smoking status: Patient reports the use of cigarette tobacco products, smokes one pack cigarettes per day. Patient uses street drugs, marijuana, Methamphetamine (Meth). Screenin/16 00:19 [facility] ED Fall Risk Assessment (Adult) History of falling in the last 3 months, al5 including since admission No falls in past 3 months (0 pts) Confusion or Disorientation No (0 pts) Intoxicated or Sedated No (0 pts) Impaired Gait No (0 pts) Mobility Assist Device Used No (0 pt) Altered Elimination No (0 pt) Score/Fall Risk Level 0 - 2 = Low Risk Oriented to surroundings, Maintained a safe environment, Hourly rounding (assess needs \T\ fall precautionary measures) done. Abuse screen: Denies threats or abuse. Denies injuries from another. Nutritional screening: No deficits noted. Tuberculosis screening: No symptoms or risk factors identified. Assessment: 00:19 General: Appears in no apparent distress. uncomfortable, Behavior is calm, cooperative. al5 Pain: Complains of pain in left mid back and right mid back. Neuro: Level of Consciousness is awake, alert, obeys commands, Oriented to person, place, time, situation. Cardiovascular: Capillary refill < 3 seconds Patient's skin is warm and dry. Respiratory: Airway is patent Respiratory effort is even, unlabored, Respiratory pattern is regular, symmetrical. GI: No signs and/or symptoms were reported involving the gastrointestinal system. : Urine is clear, jaleel/dark yellow Reports pain in bilateral flank(s), with urination. EENT: No signs and/or symptoms were reported regarding the EENT system. Derm: Skin is intact, is healthy with good turgor, Skin is pink, warm \T\ dry. normal. Musculoskeletal: No signs and/or symptoms reported regarding the musculoskeletal system. 02:29 Reassessment: Patient appears in no apparent distress at this time. No changes from al5 previously documented assessment. Patient and/or family updated on plan of care and expected duration. Pain level reassessed. Patient is alert, oriented x 3, equal unlabored respirations, skin warm/dry/pink. Patient states feeling better. Vital Signs: 07/06 22:07 BP 108 / 64; Pulse 117; Resp 18; Temp 98.7(O); Pulse Ox 100% on R/A; Weight 45.36 kg; cm10 Height 5 ft. 0 in. ; Pain 10/01; 07/07 00:15 BP 98 / 56; Pulse 65; Resp 16; Pulse Ox 100% on R/A; al5 00:30 BP 112 / 69; Pulse 59; Resp 14; Pulse Ox 100% ; al5 01:00 BP 103 / 65; Pulse 68; Resp 15; Pulse Ox 99% ; al5 01:30 BP 98 / 61; Pulse 66; Resp 14; Pulse Ox 99% ; al5 02:00 BP 112 / 70; Pulse 65; Resp 14; Pulse Ox 100% ; al5 07/06 22:07 Body Mass Index 19.53 (45.36 kg, 152.4 cm) cm10 07/06 22:07 Pain Scale: Adult cm10 ED Course: 07/06 21:56 Patient arrived in ED. mr 21:57 Annabelle Milton PA-C [facility]. sb4 21:57 Carie Staton MD is Attending Physician. sb4 22:08 Triage completed. cm10 22:09 Arm band placed on right wrist. Patient placed in waiting room. cm10 07/07 00:18 Estela Lam, LULY is Primary Nurse. al5 00:18 No provider procedures requiring assistance completed. Inserted saline lock: 22 gauge al5 in right antecubital area, using aseptic technique. Blood collected. Flushed with 10 mL NS. 00:19 Patient has correct armband on for positive identification. Bed in low position. Call al5 light in reach. Side rails up X 1. Provided Education on: plan of care. Door closed. Lights dimmed. Warm blanket given. 02:27 IV discontinued, intact, bleeding controlled, No redness/swelling at site. Pressure al5 dressing applied. Administered Medications: 00:14 Drug: NS 0.9% IV 1000 ml IV at 1000 ml once; to be given as a bolus over 60 minutes ha1 Route: IV; Rate: 1000 ml; Site: right antecubital; 02:29 Follow up: Response: No adverse reaction; IV Status: Completed infusion; IV Intake: al5 1000ml 01:10 Drug: Ketorolac IVP 15 mg IVP once Route: IVP; Site: right antecubital; al5 02:30 Follow up: Response: No adverse reaction; Pain is decreased al5 01:15 Drug: Rocephin IV 1 grams IV at calculated rate once; Given slow IV push per pharmacy al5 instructions Route: IV; Rate: calculated rate; Site: right antecubital; 02:29 Follow up: IV Status: Completed infusion; IV Intake: 50ml al5 Medication: 00:20 VIS not applicable for this client. al5 Intake: 02:29 IV: 50ml; Total: 50ml. al5 02:29 IV: 1000ml; Total: 1050ml. al5 Outcome: 01:55 Discharge ordered by . sb4 02:30 Discharged to home ambulatory, al5 02:30 Condition: good 02:30 Discharge instructions given to patient, Instructed on discharge instructions, follow up and referral plans. medication usage, Demonstrated understanding of instructions, follow-up care, medications, Prescriptions given X 1, 03:09 Patient left the ED. [facility] Signatures: Lea Kellogg, Reg Reg mr Ileana Galicia, RN RN ha1 Annabelle Milton, PA-C PA-C [email or web address] Kristina Rosario, RN RN cm10 Anabel Rosales [facility] Estela Lam RN RN al5
[2024-07-07 03:38] VITALS: TEMP 98.7
[2024-07-07 03:53] VITALS: BP 112/70; O2SAT 100
--- NOTE | 2024-07-10 16:52 | EKG ---
Test Date: 2024-07-07 Test Time: 00:25:14 [employer] Processing: ASHLYN MEASUREMENT RESULTS: Intervals: Rate: 73 WV: 160 QRSD: 80 QT: 384 QTc: 423 [place]: P: -4 WV: 160 QRS: 112 T: 68 INTERPRETIVE STATEMENTS: Normal sinus rhythm Right axis deviation Septal infarct, age undetermined Abnormal ECG Compared to ECG 12/03/2020 01:09:31 Right-axis deviation now present Myocardial infarct finding now present Electronically Signed On 07-10-24 16:48:51 CDT by Lino Le
== END 2024-07-07 03:09 | disposition home or self-care (01) ==
LOC: ER 21:53
DX: N39.0 Urinary tract infection, site not specified (principal); F17.210 Nicotine dependence, cigarettes, uncomplicated
CPT/HCPCS: 96365; 96361; 93005; 87040; 85025; 81001; 36415; 81025; 85610; 83605; 85730; 80053; 96375; 99284; J7030; J0696